=== PATIENT | female | born 1970 | race Caucasian/White ===

== ENCOUNTER 2016-08-20 12:00 | Emergency (ER) | payer OTHER ==
[2016-08-20 12:06] VITALS: BMI 23.0
[2016-08-20] MEDS ORDERED: LIDOCAINE HCL 2% (20ML MULTI-DOSE VIAL) NR ONE (13:36)
--- NOTE | 2016-08-20 14:23 | PDOC ---
History of Present Illness - General History Source: Patient, Co Founder And Cto Used (automobile designer was used), Old Records Exam Limitations: No Limitations <Gina Jiang - Last Filed: 08/20/16 14:24> - General History Source: Co Founder And Cto Used (#[id number]), Old Records Exam Limitations: No Limitations - History of Present Illness Initial Comments: 08/20/16 14:31 The patient is a 46-year-old woman with a past medical history of who presents to the emergency department for further evaluation of a Bartholin cyst/abscess boil. Patient was in [place], [place], visiting her boyfriend 2 weeks ago. She admits she engaged in sexual activity. Approximately 4 days after, she noted some vaginal discomfort and went to her nearest urgent care center where she was found to have a Bartholin cyst and was started on Bactrim and was advised to bathe in warm salts. Despite compliance, she reports her symptoms worsen. She states that today, she went to have a bladder movement and it was hard for her to get up from the toilet due to unbearable pain, thus presenting to the ED. No fever, chills, chest pain, lightheadedness headaches, abdominal pain, nausea , vomiting, diarrhea, urinary frequency. Information was obtained by [employer]. # [id number] Allergies: No Known Drug Allergies Past Surgical History: None reported Social History: No tobacco. Occasional EtOH use. No recreational drug use. <Xuan Matute - Last Filed: 08/20/16 14:34> - General Chief Complaint: Abscess Boil Stated Complaint: BARTHOLIN CYST Time Seen by Provider: 08/20/16 13:05 Past History - Past Medical History Other medical history: DEAF - Psycho/Social/Smoking Cessation Hx Anxiety: No Suicidal Ideation: No Smoking History: Never smoked Hx Alcohol Use: Yes (SOCIAL) Drug/Substance Use Hx: No Substance Use Type: None <Gina Jiang - Last Filed: 08/20/16 14:24> <Xuan Matute - Last Filed: 08/20/16 14:34> - Past Medical History Allergies/Adverse Reactions: Allergies Allergy/AdvReac Type Severity Reaction Status Date / Time No Known Allergies Allergy Verified 08/20/16 12:06 Review of Systems - Review of Systems Able to Perform ROS?: Yes Comments:: 08/20/16 14:32 GENERAL/CONSTITUTIONAL: No fever or chills. No weakness. HEAD, EYES, EARS, NOSE AND THROAT: No change in vision. No ear pain or discharge. No sore throat. CARDIOVASCULAR: No chest pain or shortness of breath. RESPIRATORY: No cough, wheezing, or hemoptysis. GASTROINTESTINAL: No nausea, vomiting, diarrhea or constipation. GENITOURINARY: Yes: Vaginal discharge. No dysuria, frequency, or change in urination. MUSCULOSKELETAL: No joint or muscle swelling or pain. No neck or back pain. SKIN: Yes: Vaginal Abscess. No rash NEUROLOGIC: No headache, vertigo, loss of consciousness, or change in strength/ sensation. ENDOCRINE: No increased thirst. No abnormal weight change. HEMATOLOGIC/LYMPHATIC: No anemia, easy bleeding, or history of blood clots. ALLERGIC/IMMUNOLOGIC: No hives or skin allergy. <Xuan Matute - Last Filed: 08/20/16 14:34> *Physical Exam - Vital Signs Last Vital Signs Temp Pulse Resp BP Pulse Ox 98.3 F 104 H 20 116/80 99 08/20/16 12:02 08/20/16 12:02 08/20/16 12:02 08/20/16 12:02 08/20/16 12:02 <Gina Jiang - Last Filed: 08/20/16 14:24> - Vital Signs Last Vital Signs Temp Pulse Resp BP Pulse Ox 98.3 F 104 H 20 116/80 99 08/20/16 12:02 08/20/16 12:02 08/20/16 12:02 08/20/16 12:02 08/20/16 12:02 - Physical Exam Comments: 08/20/16 14:32 GENERAL: Awake, alert, and fully oriented, in no acute distress HEAD: No signs of trauma EYES: PERRLA, EOMI, sclera anicteric, conjunctiva clear ENT: Auricles normal inspection, nares patent, oropharynx clear without exudates. Moist mucosa NECK: Normal ROM, supple, no lymphadenopathy, JVD, or masses LUNGS: Breath sounds equal, clear to auscultation bilaterally. No wheezes, and no crackles HEART: Regular rate and rhythm, normal S1 and S2, no murmurs, rubs or gallops ABDOMEN: Soft, nontender, normoactive bowel sounds. No guarding, no rebound. No masses PELVIC: There is a 3 cm by 4 cm fluctuant of the left inner vaginal wall consistent with a Bartholin cyst. EXTREMITIES: Normal range of motion, no edema. No clubbing or cyanosis. No cords, erythema, or tenderness NEUROLOGICAL: Cranial nerves II through XII grossly intact. Normal speech, normal gait <Xuan Matute - Last Filed: 08/20/16 14:34> Procedures - Incision and Drainage I&D Site: Left: Bartholin Betadine cleansed: Yes Anesthesia: 1% Lidocaine Volume(ml): 8 Blade Size: 11 Attempts: 1 Iodinated Packin/ in Complications: none Dressing: Yes Progress: 08/20/16 14:24 The patient tolerated the procedure well. <Gina Jiang - Last Filed: 08/20/16 14:24> Medical Decision Making - Medical Decision Making 08/20/16 14:21 46-year-old deaf female who presents to the emergency department with a Bartholin's abscess. Plan: 1. Incision and drainage of abscess (see procedure note) 2. Continue antibiotics 3. Follow-up with TECHNICAL LEAD within the next 2-3 days. Return to the emergency department if symptoms persist, worsen, or new symptoms arise. <Gina Jiang - Last Filed: 08/20/16 14:24> *DC/Admit/Observation/Transfer - Discharge Dispostion Admit: No - Attestations Physician Attestion: 08/20/16 14:22 I, Dr. Gina Jiang, attest that the scribes documentation that appears above has been prepared under my direction and personally reviewed by me in its entirety. I confirmed that the note above accurately reflects all work, treatment, procedures, and medical decision-making performed by me. <Gina Jiang - Last Filed: 08/20/16 14:24> - Attestations Scribe Attestion: 08/20/16 14:33 Documentation prepared by Xuna Matute, acting as senior medical billing specialist for Gina Jiang MD. <Xuan Matute - Last Filed: 08/20/16 14:34> Diagnosis at time of Disposition: Bartholin's gland abscess Diagnosis at time of Disposition: (Ruled Out): Abscess after procedure - Discharge Dispostion Disposition: HOME Condition at time of disposition: Stable - Patient Instructions Printed Discharge Instructions: DI for Incision and Drainage of a Skin Abscess , DI for Bartholin Gland Cyst Additional Instructions: You have a Bartholin's abscess that was drained in the emergency department. You have a small amount of packing within the abscess to allow the area to continue to drain. Please either return to the emergency department in 2 days for a follow-up to check the wound or follow-up with your costing analyst. Continue to take your antibiotics as prescribed. He may take ibuprofen 600-800 mg every 6-8 hours as needed for pain. Return to the emergency department if your symptoms persist, worsen, or new symptoms arise.
[2016-08-20 15:08] VITALS: BP 127/67; PULSE 78; TEMP 98.7
== END 2016-08-20 14:35 | disposition home or self-care (01) ==
LOC: JER 12:00
PROC: 0U9LXZZ Drainage of Vestibular Gland, External Approach (ICD-10-PCS; principal; 2016-08-20)
DX: N75.1 Abscess of Bartholin's gland (principal)
CPT/HCPCS: 56420; 99282-25

== ENCOUNTER 2016-08-23 12:47 | Emergency (ER) | payer OTHER ==
[2016-08-23 13:03] VITALS: BP 124/69; PULSE 81; TEMP 98.9; BMI 23.0
--- NOTE | 2016-08-23 13:37 | PDOC ---
Suture Removal/Wound Check HPI - History of Present Illness Chief Complaint: Revisit,Wound Recheck Stated Complaint: FOLLOW-UP Time Seen by Provider: 08/23/16 13:23 History Source: Yes: Patient Exam Limitations: Yes: No Limitations Date of Last ED visit: 08/20/16 Past History - Past Medical History Allergies/Adverse Reactions: Allergies No Known Allergies Allergy (Verified 08/23/16 13:03) Home Medications: Ambulatory Orders Sulfamethoxazole/Trimethoprim [Bactrim Ds -] 1 tab PO BID 08/20/16 - Social History Smoking Status: Never smoked Medical Decision Making - Medical Decision Making A/P: 46 y/o afebrile female who was seen here on 08/20/16 for a bartholin's cyst is here for a wound check. SHe states her packing fell out yesterday and she has been doing sitz baths. She denies fevers, chills. The patient states her pain is 99% better. She is still taking the bactrim. The wound was on the left labia majora and looks very good without active drainage, surrounding erythema or edema. The packing is gone. I instructed her to continue keeping it clean and dry and complete entire course of bactrim. Instructed her to return to the ER immediately with any worsening or concerning symptoms. The patient verbalizes understanding of all instructions, has no further questions and is awaiting discharge. *DC/Admit/Observation/Transfer Diagnosis at time of Disposition: Admission for wound check of abscess - Discharge Dispostion Disposition: HOME Condition at time of disposition: Good - Referrals Referrals: Layne Salazar MD [Primary Care Provider] - - Patient Instructions Printed Discharge Instructions: Skin Wound Additional Instructions: Discharge Instructions: -Keep area clean and dry -Continue taking your antibiotics until completed -Follow up with your doctor within 1 week -Return to the ER immediately with any worsening or concerning symptoms
== END 2016-08-23 14:03 | disposition home or self-care (01) ==
LOC: JERFT 12:47
DX: Z09 Encounter for follow-up examination after completed treatment for conditions other than malignant neoplasm (principal)
CPT/HCPCS: 99281-25

== ENCOUNTER 2020-12-04 20:47 | Emergency (ER) | payer BC, OTHER ==
[2020-12-04 20:57] VITALS: BP 151/98; PULSE 82; TEMP 98.6; BMI 32.5
[2020-12-04] MEDS ORDERED: KETOROLAC TROMETHAMINE 30 MG/1 ML VIAL IM ONE (23:22)
[2020-12-04] MEDS ORDERED: KETOROLAC TROMETHAMINE 30 MG/1 ML VIAL ONE (23:24)
[2020-12-04] MEDS ORDERED: ONDANSETRON *ODT* 4 MG TABLET SL ONE (23:34)
[2020-12-04] MEDS ORDERED: ONDANSETRON *ODT* 4 MG TABLET ONE (23:34)
== END 2020-12-05 | disposition home or self-care (01) ==
LOC: JERFT 20:47
PROC: 0U9L0ZZ Drainage of Vestibular Gland, Open Approach (ICD-10-PCS; principal; 2020-12-04)
PROC: 3E0233Z Introduction of Anti-inflammatory into Muscle, Percutaneous Approach (ICD-10-PCS; 2020-12-04)
DX: N75.1 Abscess of Bartholin's gland (principal)
CPT/HCPCS: 87070; 87186; 87205; 99284-25; Q0162